=== PATIENT | male | born 1995 | race Caucasian/White ===

== ENCOUNTER 2023-07-28 06:43 | Emergency (ER) | payer OTHER, SELFPAY ==
--- NOTE | ~2023-07-28 | CT_ITS ---
EXAMINATION: CT cervical spine wo con DATE: 07/28/2023 07:34 INDICATION: Head injury TECHNIQUE: Computed tomography (CT) of the cervical spine was performed without intravenous contrast. The dose-length product (DLP) was 499.50 mGy-cm. Automated exposure control and iterative reconstruc tion technique were employed. COMPARISON: None FINDINGS: Bone alignment is normal. There is no fracture. The odontoid process is intact. There is mi ld loss of intervertebral disc space height at C7-T1. The vertebral body heights are maintained. The prevertebral soft tissues are normal. IMPRESSION: 1. No acute osseous abnormality. Reviewed, dictated and finalized at location A.
--- NOTE | ~2023-07-28 | CT_ITS ---
EXAMINATION: CT brain wo con INDICATION: Head injury COMPARISON: None TECHNIQUE: Standard unenhanced head CT. The dose-length product (DLP) was 605.33 mGy-cm. The mA was a djusted according to patient size. Iterative reconstruction technique was employed. FINDINGS: No intracranial hemorrhage, acute infarction, or abnormal mass lesion. The ventricles are n ormal. No abnormal mass effect or midline shift. The lozano-white matter differentiation is normal. The basal cisterns are patent. There is left periorbital soft tissue swelling. The orbits are normal. Th ere is mild mucosal thickening of the paranasal sinuses. IMPRESSION: 1. No acute intracranial abnormality. Reviewed, dictated and finalized at location A.
--- NOTE | ~2023-07-28 | XR_ITS ---
EXAMINATION: XR forearm LT 2V INDICATION: Left forearm pain, history of prior fracture TECHNIQUE: Two views of the left forearm are obtained on four radiographs. COMPARISON: None available FINDINGS: . There is mild deformity of the radial head, likely relating to history of prior fracture. No acute fracture is identified. The joint spaces are normal. IMPRESSION: 1. No acute osseous abnormality. Reviewed, dictated and finalized at location A.
[2023-07-28 06:48] VITALS: BP 136/79; PULSE 86; RESP 15; TEMP 36.5; O2SAT 100
[2023-07-28 07:16] VITALS: BP 151/88; PULSE 96; RESP 20; O2SAT 100
[2023-07-28 08:09] VITALS: BP 127/94; PULSE 97; RESP 11; O2SAT 100
[2023-07-28] MEDS: TETANUS,DIPHTHERIA,AC PERTUSSIS ADULT (0.5 ML) BOOSTRIX IM (08:24)
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
== END 2023-07-28 08:28 | disposition home or self-care (01) ==
PROVIDERS: Emergency Provider Emergency Medicine
DX: S00.12XA Contusion of left eyelid and periocular area, initial encounter (principal); S63.502A Unspecified sprain of left wrist, initial encounter; S50.812A Abrasion of left forearm, initial encounter; S50.811A Abrasion of right forearm, initial encounter; Z23 Encounter for immunization; V47.5XXA Car driver injured in collision with fixed or stationary object in traffic accident, initial encounter
CPT/HCPCS: 70450; 72125; 73090; 90471; 90715; 99284; L0140